=== PATIENT | female | born 1990 | race African-American/Black ===

== ENCOUNTER 2017-11-08 16:14 | Emergency (ER) | payer OTHER | END 2017-11-08 16:29 | disposition left against medical advice (07) | LOC: ERS 16:14 | DX: Z53.21 Procedure and treatment not carried out due to patient leaving prior to being seen by health care provider (principal) ==

== ENCOUNTER 2019-11-10 21:23 | Day surgery (SDC) | payer OTHER ==
[2019-11-10 21:54] VITALS: BMI 22.0
[2019-11-10 22:21] LABS: Amnisure Test No Membranes Rupture (No Rupture)
[2019-11-10 22:22] LABS: Amnisure Internal Control QC ACCEPTABLE (ACCEPTABLE)
[2019-11-10] MEDS ORDERED: hydrALAZINE 20 MG/ML VIAL SLOW IVP PRN (22:29)
--- NOTE | 2019-11-10 22:38 | PDOC.EVN ---
Event Note - Event Note Event Note: Amnisure neg NST reactive
--- NOTE | 2019-11-10 22:57 | HP ---
TIME OF EVALUATION: Roughly 2219. LOCATION: Labor and Delivery, bed 6. This is a patient of Dr. Salazar. CHIEF COMPLAINT: Possible contractions at 35 weeks and 2 days. HISTORY OF PRESENT ILLNESS: This is a 29-year-old, G6, P3, A2 with at 36 weeks with her last, here for possible contractions. She denies vaginal bleeding, or gush of fluid, or recent intercourse. She denies fever, or other complications. REVIEW OF SYSTEMS: Complete review of systems was checked and is otherwise negative unless specified in the HPI. PAST MEDICAL HISTORY: Negative. PAST SURGICAL HISTORY: Cone biopsy. ALLERGIES: NONE. SOCIAL HISTORY: Negative. PHYSICAL EXAMINATION: VITAL SIGNS: Show a blood pressure of 113/80, pulse of 81, respirations of 18, temperature is 98.7. GENERAL: Clinically, she is in no acute distress. HEENT: poor dentition noted ABDOMEN: Soft and nontender. PELVIC: Cervical exam reveals a cervix that is closed and there is no gross evidence of leakage or vaginal bleeding. On monitor, heart tones are reactive in the 140 with moderate variability and no decelerations. It is a reassuring strip. Contractions are irregular and there is uterine irritability on the monitor. ASSESSMENT: This is a G6, P3, at 35 weeks and 2 days with a cervix that is closed per RN exam and no gross evidence of rupture. We collected an AmniSure as she stated that she was "moist" in the vaginal area, but had no leakage or gush of fluid. Clinically, no evidence grossly of ROM. PLAN: 1. We will await the AmniSure results. 2. I do not have any gross evidence of rupture clinically. 3. If her AmniSure is negative, as her cervix is closed, we will have her follow up tomorrow in 24 hours in the office. Job ID: [id number] MTDD
--- NOTE | 2019-11-10 22:58 | PDOC.EVN ---
Event Note - Event Note Event Note: Predischarge note: Patient was upset that she was not in labor. We addressed her EGA with her and CX as closed. NST reasurring. She has requested for pain meds. I have ordered 2mg morphine IM (she is not driving). I have discussed Benja-Lauren with her at bedside.
[2019-11-10] MEDS ORDERED: Morphine 4 MG/ML VIAL IM SCH (23:00)
--- NOTE | 2019-11-11 00:07 | PDOC.EVN ---
Event Note - Event Note Event Note: Patient left the unit upset that we were not going to induce saying, "nothing was being done". We again reviewed with her IOL and EGA. She also verbally threatened one of our nurses (Byron) on her release from L&D. L&D precautions were given but she states she was "never coming back here".
[2019-11-11] MEDS ORDERED: FLU VACC QS2019-20(6MOS UP)/PF 60 MCG/0.5 ML SYRINGE IM ONE (21:00)
== END 2019-11-10 23:25 | disposition home or self-care (01) ==
LOC: L&D/OP 21:23
PROVIDERS: ATTEND Obstetrics & Gynecology
DX: O47.03 False labor before 37 completed weeks of gestation, third trimester (principal); O09.213 Supervision of pregnancy with history of pre-term labor, third trimester; Z3A.35 35 weeks gestation of pregnancy
CPT/HCPCS: 84112; J2270

== ENCOUNTER 2019-11-19 00:54 | Day surgery (SDC) | payer OTHER ==
[2019-11-19 02:12] VITALS: BP 107/59; TEMP 98.8; BMI 22.8
[2019-11-19] MEDS ORDERED: hydrALAZINE 20 MG/ML VIAL SLOW IVP PRN (07:10)
--- NOTE | 2019-11-19 08:00 | PRG ---
DATE OF SERVICE: 11/19/2019 PRIMARY OB: Kolton Salazar MD CHIEF COMPLAINT: Pelvic pain. HISTORY OF PRESENT ILLNESS: The patient is a 29-year-old G4, P3 female with an intrauterine at 36 weeks and 5 days, presenting to Labor and Delivery with a several-day history of lower pelvic pain. The patient reports that she has been seen recently for the similar pain and she reports pain in her lower pelvis. She reports that the baby should be able to be induced at this gestational age and is requesting induction. The patient denies any leakage of fluid or vaginal bleeding. She denies any recent illness, fever, fall, headache, chest pain, shortness of breath, nausea, vomiting, diarrhea, constipation, hip problems, knee problems, muscle weakness, vaginal bleeding, leakage of fluid, urinary urgency or frequency. PAST MEDICAL HISTORY: Negative. PAST SURGICAL HISTORY: Noncontributory. ALLERGIES: NO KNOWN DRUG ALLERGIES. MEDICATIONS: vitamins. OB LABS: Unavailable at time of dictation. REVIEW OF SYSTEMS: Per HPI. PHYSICAL EXAMINATION: VITAL SIGNS: Blood pressure 121/88, heart rate of 86, respiratory rate of 18, temperature 98.8. GENERAL: She appears to be in no acute distress. She is alert, oriented, cooperative, and pleasant to interact with. HEAD: Normocephalic, atraumatic. LUNGS: Clear to auscultation bilaterally. HEART: Has a regular rate and rhythm. ABDOMEN: Gravid. She does have some tenderness in her lower pelvis to palpation with deviation of the uterus, left than right. EXTREMITIES: Nontender, nonedematous. CERVICAL EXAM: Per nursing staff is 1, 50, and -3 station. heart tracing shows the fetus with a baseline in the 130s with moderate long-term variability. Positive 15 x 15 accelerations, no decelerations. Contraction are irregular. ASSESSMENT AND PLAN: The patient during her visit on multiple occasions showed some inpatients in the process and demanding induction and threatening to leave and go to a different hospital. Before the completion of the evaluation, the patient stated that she was no longer going to stay. She did thank me for our time and chose to leave without completing the evaluation. Fetus had a category 1 tracing. Cervix is unfavorable for labor and difficult to assess labor given the little time she was present. The patient was counseled to follow up with her primary OB as scheduled and has been given labor precautions. Job ID: [id number]
== END 2019-11-19 02:12 | disposition home or self-care (01) ==
LOC: L&D/OP 00:54
PROVIDERS: ATTEND Obstetrics & Gynecology
DX: O99.89 Other specified diseases and conditions complicating pregnancy, childbirth and the puerperium (principal); R10.2 Pelvic and perineal pain; Z3A.36 36 weeks gestation of pregnancy
CPT/HCPCS: 99282

== ENCOUNTER 2019-12-08 18:39 | Day surgery (SDC) | payer OTHER ==
[2019-12-08 19:36] VITALS: BP 136/95; TEMP 98.6; BMI 25.0
[2019-12-08] MEDS ORDERED: hydrALAZINE 20 MG/ML VIAL SLOW IVP PRN (20:00)
[2019-12-08 20:24] LABS: Amnisure Internal Control QC ACCEPTABLE (ACCEPTABLE)
[2019-12-08 20:28] LABS: Amnisure Test No Membranes Rupture (No Rupture)
--- NOTE | 2019-12-08 22:43 | ULT ---
OB ULTRASOUND: History: Term IUP, limited care. Evaluate presentation. FINDINGS: There is a single intrauterine gestation in cephalic presentation. Cardiac doppler demonstrates heart tones with a heart rate of 136 beats/minute. Placenta is located to the maternal right. The placenta in relation to the cervical os is not well demonstrated on this exam. There is shadowing from the head, limiting evaluation of the lower uterine segment and cervix. Amniotic fluid ind ex measures 12.2 cm which is within normal limits. Cardiac doppler does demonstrate heart tones with a heart of 136 beats/minute. measurements: BPD: 9.04 cm 36 weeks 4 days HC: 33.19 cm 37 weeks 6 days AC: 33.32 cm 37 weeks 2 days FL: 7.24 cm 37 weeks The estimated gestational age by ultrasound is 37 weeks 1 day with an QUINCY of 12-28-2019. Gestational a ge by the last menstrual period is 39 weeks 3 days. The estimated weight by ultrasound is 3141 grams (6 lbs. 15 oz.) This represents 20th percentil e for weight. anatomical structures are not evaluated on this examination. However, limited visualized portio ns of the spine, urinary bladder, stomach, and three vessel cord are seen and demonstrate a nor mal sonographic appearance. There is suggestion of a four-chambered heart. The kidneys and urinary bl adder demonstrate a normal sonographic appearance. The cord insertion is not well delineated, probabl y related to positioning and gestational age limiting adequate evaluation. One of the provided images questions the possibility of mildly prominent loose bowel within the abdomen. biophysical profile was performed with a score of 2 obtained each for tone, breathi ng, movement, and amniotic fluid volume. IMPRESSION: 1. Single intrauterine gestation with heart tones documented. Gestational age by ultrasound is 37 weeks 1 day with QUINCY of 12-28-2019. 2. Estimated weight is 3141 grams (6 lbs. 15 oz.) 3. One provided demonstrates what appear to be mildly prominent\dilated loops of small bowel. 4. A total biophysical profile score of 8/8 was obtained. POS: JACK
--- NOTE | 2019-12-09 08:43 | SS ---
DATE OF Evaluation: 12/08/2019 CHIEF COMPLAINT: Cramping, possible loss of fluid. HISTORY OF PRESENT ILLNESS: Ms. Aaron is a 29-year-old black G4, P3-0-0-3 with a reported estimated date of confinement of 12/12/2019, who presents complaining of intermittent cramping and the possible leakage of fluid since earlier today. Her early care had apparently been limited with Dr. Salazar. She states that she was incarcerated due to unpaid tickets and when she got out of the penitentiary, she could no longer be seen there. Since that time, she has had limited care. PAST OBSTETRICAL HISTORY: Includes three spontaneous vaginal deliveries at term. PAST MEDICAL HISTORY: None. PAST SURGICAL HISTORY: Includes either a cold knife conization or LEEP of the cervix. CURRENT MEDICATIONS: vitamins. ALLERGIES: INCLUDE SOME REACTION TO THE ANESTHESIA GIVEN DURING HER CONE BIOPSY. SOCIAL HISTORY: Denies tobacco, alcohol, or drug use. FAMILY HISTORY: Unremarkable. REVIEW OF SYSTEMS: Denies nausea, vomiting, fever, chills, or decreased movement. PHYSICAL EXAMINATION: VITAL SIGNS: Vital signs are stable. She is afebrile. GENERAL: She is initially pleasant, but then became annoyed at the end of her visit. ABDOMEN: Soft, nontender, and gravid. PELVIC: Exam by the labor nurse shows the cervix to be high and thick. There is copious vaginal discharge. heart rate tracing is reassuring with the exception of a single mild variable. Spontaneous accelerations are seen. Biophysical profile shows 8/8 with adequate amniotic fluid. Ultrasound shows a fetus in excess of 6 pounds in the vertex presentation. AmniSure testing returns negative. VPIII panel is positive for Gardnerella and Katharine. ASSESSMENT: 1. Suspected term . No evidence of active labor at this time. 2. Vaginitis. Both Gardnerella and Katharine seen on VPIII testing tonight. PLAN: I have attempted to connect this patient with the clinic through the residence. The night call team came up and spoke with her, but the patient became very frustrated and stated that she has already tried the clinic and they would not see her. I encouraged her to try again, but she seems angry and reluctant to do this. She was given a prescription for Flagyl 250 mg one p.o. t.i.d. for 7 days as well as Diflucan 1 p.o. x1. She voiced understanding of her discharge instructions. A group B strep culture is pending as of her discharge. Job ID: [id number] MTDD
== END 2019-12-08 22:00 | disposition home or self-care (01) ==
LOC: L&D/OP 18:39
PROVIDERS: ATTEND Obstetrics & Gynecology
DX: O23.593 Infection of other part of genital tract in pregnancy, third trimester (principal); B96.89 Other specified bacterial agents as the cause of diseases classified elsewhere; O98.813 Other maternal infectious and parasitic diseases complicating pregnancy, third trimester; B37.9 Candidiasis, unspecified; B95.1 Streptococcus, group B, as the cause of diseases classified elsewhere; O09.33 Supervision of pregnancy with insufficient antenatal care, third trimester; Z3A.37 37 weeks gestation of pregnancy; Z88.4 Allergy status to anesthetic agent
CPT/HCPCS: 76805; 76819; 84112; 87081; 87480; 87510; 87660; 99285

== ENCOUNTER 2019-12-13 14:52 | Inpatient (IN) | payer OTHER ==
[~2019-12-13 14:52] MED LIST: Bupivacaine/Epinephrine 0.25% 30 ML VIAL ONE
[2019-12-13 15:43] VITALS: BMI 26.4
[2019-12-13 16:36] LABS: Amnisure Test No Membranes Rupture (No Rupture)
[2019-12-13 16:37] LABS: Amnisure Internal Control QC ACCEPTABLE (ACCEPTABLE)
[2019-12-13] MEDS ORDERED: hydrALAZINE 20 MG/ML VIAL SLOW IVP PRN ×3 (16:43→22:51)
--- NOTE | 2019-12-13 16:47 | PDOC.FPROB ---
FMR OB H&P: HPI - History of Present Illness Chief Complaint: contractions, LOF, decreased movement History of Present Illness: 29 yo @40wks by LMP and 16.5wk sono her complaining of contractions since 0400 today, LOF since ~0600, and decreased movement all day. Last ate this morning for breakfast. Endorses vaginal discharge, white and thick, but states she is already being treated for BV and a yeast infection. FMR OB H&P: Current - Care : 4 Para: 3 - OB Labs Blood type: A RH: positive Antibody Screen: positive (titer 1:1) HIV: negative RPR: negative HepBsAg: negative Rubella: immune Quad screen: negative Urine drug screen: positive (1T for marijuana) Gonorrhea: negative Chlamydia: negative Pap Smear: NILM 1 hour gtt: not done FMR OB H&P: History - Past Medical History PMH: denies - OB History OB History: 3 prior SVDs - ABORIGINAL CEREMONIAL CELEBRANT History ABORIGINAL CEREMONIAL CELEBRANT History: Pap NILM - Surgical History Sx History: none - Social History Social History: denies smoking, alcohol, drug use hx of marijuana positive in 1T - Family History Family History: denies FMR OB H&P: Medications - Current Home Medications: Medication Instructions Recorded Confirmed Type Vit No.130/Iron/Folic 1 each PO DAILY 01/20/16 12/13/19 History [ Tablet] Fluconazole 1 tab PO DAILY 12/13/19 12/13/19 History Metronidazole [metroNIDAZOLE] 1 tab PO DAILY 12/13/19 12/13/19 History Allergies/Adverse Reactions: Allergies Allergy/AdvReac Type Severity Reaction Status Date / Time No Known Allergies Allergy Verified 12/08/19 19:37 FMR OB H&P: ROS - Review of Systems General: denies: fever/chills, weight/appetite/sleep changes ENT: denies: nasal congestion, rhinorrhea Cardiovascular: reports: edema. denies: chest pain, palpitation Gastrointestinal: reports: abdominal pain. denies: nausea, vomiting, diarrhea Genitourinary (Female): reports: vaginal discharge, contractions, other (LOF, decreased movment). denies: incontinence, dysuria Neurologic: denies: numbness, syncope Endocrine: denies: polydipsia, polyuria Psychological: denies: depression, anxiety FMR OB H&P: Physical Exam - Physical Exam General: NAD, awake, alert and oriented HEENT: normocephalic and atraumatic, EOMI, MMM, conjunctiva clear, no scleral icterus Neck: supple, trachea midline, no LAD Heart: RRR, normal S1/S2, no murmurs/rubs/gallops General: CTAB, no respiratory distress Abdomen: soft, gravid Musculoskeletal: normal gait and station Skin: no rash, good tugor, capillary refill <2 seconds Lymphatic: no unusual bruising or bleeding, no purpura, no petechia Psychiatric: intact recent and remote memory FMR OB H&P: Results - Labs Lab results: Laboratory Results - last 24 hr 12/13/19 16:12 Amnio Swab Test No Membranes Rupture FMR OB H&P: A/P - Problem List (1) Term Current Visit: Yes Status: Acute Code(s): Z34.90 - ENCNTR FOR SUPRVSN OF NORMAL , UNSP, UNSP TRIMESTER (2) Bacterial vaginosis Current Visit: Yes Status: Acute Code(s): N76.0 - ACUTE VAGINITIS; B96.89 - OTH BACTERIAL AGENTS THE CAUSE OF DISEASES CLASSD ELSWHR (3) Candidiasis of vagina Current Visit: Yes Status: Acute Code(s): B37.3 - CANDIDIASIS OF VULVA AND VAGINA (4) History of marijuana use Current Visit: Yes Status: Acute Code(s): Z87.898 - PERSONAL HISTORY OF OTHER SPECIFIED CONDITIONS (5) Positive GBS test Current Visit: Yes Status: Acute Code(s): B95.1 - STREPTOCOCCUS, GROUP B, CAUSING DISEASES CLASSD ELSWHR (6) History of incarceration Current Visit: Yes Status: Acute Code(s): Z78.9 - OTHER SPECIFIED HEALTH STATUS (7) Poor patient attendance of care Current Visit: Yes Status: Acute Code(s): O09.30 - SUPRVSN OF PREG W INSUFFICIENT ANTENAT CARE, UNSP TRIMESTER (8) Fluid loss Current Visit: Yes Status: Acute Code(s): E86.9 - VOLUME DEPLETION, UNSPECIFIED (9) Decreased movement Current Visit: Yes Status: Acute Code(s): O36.8190 - DECREASED MOVEMENTS, UNSP TRIMESTER, UNSP Discussion: Date/Time: 12/13/19 1646 29 yo @40wks here with contractions, LOF,decreased movement. #sIUP, term-rule out labor -kalia q5m -/-2 -recheck cervix in two hours if making change, admit for labor #decresed movement- -NST reactive -BPP ordered #LOF -amnisure, sterile speculum exam (declined until she gets pain medicine), however, bulging bag felt on vaginal exam #Vaginal Discharge- -Treated for Katharine and BV -will check gonorrhea and chlamydia #poor care #hx of UDs + for marijuana #BV-on flagyl #Katharine, vaginal-treated #GBS + #prior SVDs #hx of incarceration Evelia Chaparro MD, PGY-3
[2019-12-13] MEDS ORDERED: Butorphanol Tartrate 1 MG/ML VIAL SLOW IVP PRN (17:09)
[2019-12-13] MEDS ORDERED: Ibuprofen 800 MG TAB PO PRN (17:09)
[2019-12-13] MEDS ORDERED: Promethazine HCl 25 MG/ML VIAL IM PRN ×2 (17:09→19:17)
[2019-12-13] MEDS ORDERED: Ondansetron PF 4 MG/2 ML Vial IVP PRN ×2 (17:09→19:17)
[2019-12-13] MEDS ORDERED: Acetaminophen 500 MG TAB PO PRN (17:09)
[2019-12-13] MEDS ORDERED: Lidocaine 1% (PF) 30 ML VIAL SC PRN (17:09)
[2019-12-13] MEDS: Lactated Ringer's 1,000 ML IV SCH ×2 (17:30→18:05)
[2019-12-13 17:43] LABS: Hemoglobin 11.6 g/dL (12.0-16.0); Mean Corpuscular HGB CONC 32.1 g/dL (32.0-36.0); Mean Corpuscular Hemoglobin 27.3 pg (27.0-31.0); Mean Platelet Volume 10.4 fL (7.4-10.4); Platelet Count 206 thou/uL (130-400); RBC Distribution Width 14.4 % (11.5-14.5); Red Blood Cell (RBC) Count 4.25 mill/uL (4.20-5.40); White Blood Cell (WBC) Count 9.2 thou/uL (4.8-10.8)
[2019-12-13] MEDS ORDERED: Penicillin G Potassium 5 MILL.UNITS in Sodium Chloride 0.9% 100 ML IVPB SCH (18:00)
[2019-12-13 18:16] LABS: Syphilis Antibody Nonreactive (Nonreactive); Syphilis Antibody Index 0.04 S/CO (<1.00 Non-Reactive)
--- NOTE | 2019-12-13 18:22 | ULT ---
LIMITED OBSTETRICAL ULTRASOUND FOR BIOPHYSICAL PROFILE INDICATION: Evaluate BPP; term with variables on external monitor TECHNIQUE: Grayscale, M-mode Doppler, color Doppler and spectral Doppler images were obtained. Biophy sical profile was submitted by the engine test cell technician. Imaging is focused on the clinical indication. COMPARISON: No relevant prior studies available. GESTATION: Number of gestations: Single. Presentation: Cephalic. heart rate: 137 bpm. Placental location: Anterior Previa: No evidence for previa. Cervical length: Not measured MILDRED: 12.7 cm. Biophysical profile: tone: 2 out of 2. breathin out of 2 movements: 2 out of 2 Amniotic fluid level: 2 out of 2 IMPRESSION: 1. Biophysical profile of 8 out of 8.
[2019-12-13 18:29] LABS: HBSAg Index 0.17 S/CO (0-0.99); HIV (1/2) Antibody/Antigen Non-Reactive (NonReactive); HIV 1/2 INDEX 0.07 S/CO (<1.00); Hep B Surf Ag Non-Reactive S/CO (NonReactive); Hep C IgG Ab Non-Reactive (NonReactive); Hep C Index 0.09 S/CO (0-0.79)
[2019-12-13 18:50] LABS: Amphetamine Not Detected (NotDetected); Barbiturates Screen Not Detected (NotDetected); Benzodiazepine Screen Not Detected (NotDetected); Cocaine Metabolite Screen Not Detected (NotDetected); Medtox Control Line Valid? VALID (VALID); Medtox Reader # READER 1; Methadone Not Detected (NotDetected); Methamphetamine Not Detected (NotDetected); Opiate Screen Not Detected (NotDetected); Oxycodone Screen Not Detected (NotDetected); Phencyclidine (PCP) Not Detected (NotDetected); THC/Cannabinoid Screen Detected (NotDetected); Tricyclic Screen Not Detected (NotDetected)
[2019-12-13] MEDS ORDERED: Acetaminophen 325 MG TAB PO PRN (19:17)
[2019-12-13] MEDS ORDERED: Naloxone HCl 0.4 mg/ml Vial IVP PRN ×2 (19:17)
[2019-12-13] MEDS ORDERED: diphenhydrAMINE 50 MG/ML VIAL IVP PRN (19:17)
[2019-12-13] MEDS ORDERED: ePHEDrine/0.9% NaCl/PF SYRINGE 50 mg/10 ml SLOW IVP PRN (19:17)
[2019-12-13] MEDS ORDERED: Lactated Ringer's 500 ML IV PRN (19:17)
[2019-12-13] MEDS ORDERED: Communication Order-Pharmacy FS SCH (19:30)
[2019-12-13] MEDS ORDERED: Fentanyl 4 mcg/Bupivacaine 0.1% Cassette 100 ML EPIDURAL SCH (19:30)
[2019-12-13] MEDS ORDERED: Terbutaline Sulfate 1 MG/ML VIAL ONE (19:57)
[2019-12-13] MEDS: NS / Oxytocin 40 units/1000ml 1,000 ML IV PRN ×2 (20:18→21:56)
--- NOTE | 2019-12-13 20:48 | PDOC.OPDEL ---
OB Operative/Delivery Note Delivery Dr/Surgeon: Patti Gunn Assist: Dr. Shavonne Holt Pre-Delivery Diagnosis: active labor Procedure/Post Delivery Dx: operative vaginal delivery Weeks gestation: 40 Anesthesia: epidural - Findings A Sex: female - 1 min: 4 - 5 min: 8 - Additional Findings/Plan Placenta delivered: spontaneous Repaired Obstetrical Laceration: none Estimated blood loss: 100 ml QBL Compilations/Other Findings: Delivering Physician Patti Gunn Attending Dr. Holt Procedure: Spontaneous Vaginal Delivery Anesthesia: epidural QBL: 100 ml Pre-op Diagnosis: 1. Term intrauterine in labor 2. GBS + 3. Maternal abuse of marijuana 4. Intermittent care Post-op Diagnosis: 1. Term intrauterine , delivered 2. GBS +: Penicillin hung at 1630, baby delivered at 2018: inadequate penicillin ppx. 3. same as above Indications: A 29 y/o female @ 40.0 wk by 16.5 wk sono presents in active labor who delivered a viable F infant at 20:18 on 12/13/2019. Due to non reassuring heart rate, the vacuum was placed anterior to the posterior fontanel at +2 station, ALEISHA position after bladder emptied and anesthesia found to be adequate. Infant was delivered within one pull without complication (0 pop-offs). The infant head/face was examined and no bruising noted. The vigorous female was delivered over an intact perineum in the Left occipitoanterior position. Anterior Shoulder and then remainder of the body delivered. No nuchal cord. The head was held down and mouth and nares were bulb suctioned. Cord clamped and cut and cord blood collected. Placenta delivered intact in the Mc presentation with a 3 vessel cord noted. Fundal massage was performed and the fundus was firm. The cervix and vagina were inspected and found to be free of lacerations. went to nursery in good condition for routine care. Apgars were _4_/_8_ at 1 & 5 minutes, respectively, and 10 at 10 minutes. Patient tolerated delivery well and went to after routine recovery/care. Post delivery plan: routine recovery
[2019-12-13] MEDS ORDERED: NS / Oxytocin 40 units/1000ml 1,000 ML IV SCH (22:51)
[2019-12-13] MEDS ORDERED: Bisacodyl 10 MG SUPP PR PRN (22:51)
[2019-12-13] MEDS ORDERED: Lanolin Ointment 7 GM TUBE TOP PRN (22:51)
[2019-12-13] MEDS ORDERED: Benzocaine-Menthol 82.5 ML CAN TOP PRN (22:51)
[2019-12-13] MEDS ORDERED: Preparation H Ointment 57 gram tube RC PRN (22:51)
[2019-12-13] MEDS ORDERED: Milk Of Magnesia 30 ML UDCUP PO PRN (22:51)
[2019-12-13] MEDS ORDERED: Ibuprofen 800 MG TAB PO SCH (23:00)
[2019-12-13] MEDS ORDERED: Docusate Calcium (SURFAK) 240 MG CAP PO SCH (23:00)
[2019-12-14] MEDS: Ibuprofen 800 MG TAB PO SCH ×3 (03:56→21:24)
[2019-12-14] MEDS: metroNIDAZOLE 500 MG TAB PO SCH ×3 (03:57→21:25)
--- NOTE | 2019-12-14 07:06 | PDOC.PP ---
Post Progress Note Post Day #: 1 Subjective: Pt feeling well, pain is well controlled, minimal lochia. She is eating/drinking , walking, passing flatus, voiding. PO intake tolerated: yes Flatus: yes Ambulation: yes Vital Signs (12 hours) Temp Pulse Resp BP Pulse Ox 12/14/19 03:50 98.0 F 78 18 108/63 12/14/19 01:05 98.1 F 72 18 131/62 12/13/19 23:25 98.6 F 84 18 129/83 99 Weight Weight 78.925 kg - Physical Examination General: NAD Cardiovascular: no m/r/g, RRR Respiratory: clear to auscultation bilaterally, non-labored breathing Abdominal: + bowel sounds, lochia, no distention, appropriately TTP Fundus firm & at: below umbilicus Psychiatric: A&Ox3, normal affect Result Diagrams: 12/14/19 05:55 Additional Labs: Post Labs Blood Type A POSITIVE 12/14/19 05:55 Hep Bs Antigen Non-Reactive S/CO (NonReactive) 12/13/19 17:24 (1) Bacterial vaginosis Code(s): N76.0 - ACUTE VAGINITIS; B96.89 - OTH BACTERIAL AGENTS THE CAUSE OF DISEASES CLASSD ELSWHR Status: Acute (2) Candidiasis of vagina Code(s): B37.3 - CANDIDIASIS OF VULVA AND VAGINA Status: Acute (3) History of incarceration Code(s): Z78.9 - OTHER SPECIFIED HEALTH STATUS Status: Acute (4) History of marijuana use Code(s): Z87.898 - PERSONAL HISTORY OF OTHER SPECIFIED CONDITIONS Status: Acute (5) Positive GBS test Code(s): B95.1 - STREPTOCOCCUS, GROUP B, CAUSING DISEASES CLASSD ELSWHR Status : Acute (6) Term Code(s): Z34.90 - ENCNTR FOR SUPRVSN OF NORMAL , UNSP, UNSP TRIMESTER Status: Acute (7) Normal spontaneous vaginal delivery Code(s): O80 - ENCOUNTER FOR FULL-TERM UNCOMPLICATED DELIVERY Status: Acute - Assessment/Plan 29 yo G4 now P4 s/p PPD #1 #PPD #1 -Delivered via vacuum-assisted on 12/13 @ 2018 -VSS -ambulating, normal lochia, flatus, eating/drinking, voiding/passing flatus -Pain well controlled -fundus firm and below umbilicus -QBL 100 ml -Pt refusing lab draws this AM, discussed with pt reasoning for lab draws -Plan to bottle feed -She is still deciding who will be baby's doctor #GBS+, inadequately treated -continue to monitor mom/baby for s/s sepsis for full 48 hrs #poor care #+UDS for marijuana #BV-on flagyl #Katharine, vaginal-treated #hx of incarceration Dispo: Likely discharge home in 2 days.
[2019-12-14 07:10] LABS: Band 4 % (5-11); Hemoglobin 9.4 g/dL (12.0-16.0); Lymphocytes 24 % (21-51); MDiff Complete? YES; Mean Corpuscular HGB CONC 32.8 g/dL (32.0-36.0); Mean Corpuscular Hemoglobin 28.2 pg (27.0-31.0); Mean Platelet Volume 10.9 fL (7.4-10.4); Monocytes 10 % (0-10); Neutrophil 62 % (42-75); Platelet Count 167 thou/uL (130-400); RBC Distribution Width 14.5 % (11.5-14.5); Red Blood Cell (RBC) Count 3.35 mill/uL (4.20-5.40); White Blood Cell (WBC) Count 12.8 thou/uL (4.8-10.8)
[2019-12-14] MEDS: Penicillin G 2.5 MILL.units 2.5 MILL.UNITS in Premix Bag 1 BAG IVPB SCH ×4 (07:32→17:38)
[2019-12-14] MEDS ORDERED: Adacel (T-DAP) 0.5 ML SYRINGE IM ONE (09:00)
[2019-12-14] MEDS ORDERED: Prenatal Vitamin 1 TAB PO SCH ×2 (09:00)
[2019-12-14] MEDS: Docusate Calcium (SURFAK) 240 MG CAP PO SCH ×2 (10:04→21:25)
[2019-12-14] MEDS: Ferrous Sulfate 325 MG TAB PO SCH ×2 (10:04→17:46)
[2019-12-14] MEDS: Lactated Ringer's 1,000 ML IV SCH ×2 (10:05→17:38)
[2019-12-14] MEDS ORDERED: FLU VACC QS2019-20(6MOS UP)/PF 60 MCG/0.5 ML SYRINGE IM ONE (16:15)
[2019-12-14 23:52] VITALS: BP 108/68; TEMP 98.4
[2019-12-15] MEDS: Penicillin G 2.5 MILL.units 2.5 MILL.UNITS in Premix Bag 1 BAG IVPB SCH ×2 (05:52→05:54)
[2019-12-15] MEDS: Lactated Ringer's 1,000 ML IV SCH (05:55)
[2019-12-15] MEDS: Ibuprofen 800 MG TAB PO SCH (05:55)
--- NOTE | 2019-12-15 06:21 | PDOC.PP ---
Post Progress Note Post Day #: 2 Subjective: Pt pain is controlled, eating/drinking/voiding and stooling, ambulating well. Normal lochia. CPS came to see mother overnight due to +UDS for cannabis. Mother refused to sign a safety plan at that time. CPS stated they would come back to see her on Monday. Mother stated at first she was planning to leave after the 48 hrs was up, now states she is leaving now and demanding discharge paperwork. Discussed that she would be leaving against medical advice if she leaves now with the baby. PO intake tolerated: yes Flatus: yes Ambulation: yes Vital Signs (12 hours) Temp Pulse Resp BP Pulse Ox 12/14/19 20:20 98.4 F 86 18 108/68 99 Weight Weight 78.925 kg - Physical Examination General: NAD Cardiovascular: no m/r/g, RRR Respiratory: clear to auscultation bilaterally, non-labored breathing Abdominal: + bowel sounds, no distention, appropriately TTP Neurological: no gross focal deficits Psychiatric: A&Ox3 Deviation from normal: guarded affect Result Diagrams: 12/14/19 05:55 Additional Labs: Post Labs Blood Type A POSITIVE 12/14/19 05:55 Hep Bs Antigen Non-Reactive S/CO (NonReactive) 12/13/19 17:24 (1) Bacterial vaginosis Code(s): N76.0 - ACUTE VAGINITIS; B96.89 - OTH BACTERIAL AGENTS THE CAUSE OF DISEASES CLASSD ELSWHR Status: Acute (2) Candidiasis of vagina Code(s): B37.3 - CANDIDIASIS OF VULVA AND VAGINA Status: Acute (3) History of incarceration Code(s): Z78.9 - OTHER SPECIFIED HEALTH STATUS Status: Acute (4) History of marijuana use Code(s): Z87.898 - PERSONAL HISTORY OF OTHER SPECIFIED CONDITIONS Status: Acute (5) Positive GBS test Code(s): B95.1 - STREPTOCOCCUS, GROUP B, CAUSING DISEASES CLASSD ELSWHR Status : Acute (6) Term Code(s): Z34.90 - ENCNTR FOR SUPRVSN OF NORMAL , UNSP, UNSP TRIMESTER Status: Acute (7) Normal spontaneous vaginal delivery Code(s): O80 - ENCOUNTER FOR FULL-TERM UNCOMPLICATED DELIVERY Status: Acute - Assessment/Plan 29 yo G4 now P4004 s/p PPD #2 #PPD #2 -Delivered via vacuum-assisted on 12/13 @ 20:18 -VSS -ambulating, normal lochia, flatus, eating/drinking, voiding/passing flatus -Pain well controlled -fundus firm and below umbilicus -QBL 100 ml -Plan to bottle feed -She is still deciding who will be baby's doctor #GBS+, inadequately treated -continue to monitor mom/baby for s/s sepsis for full 48 hrs #Anemia -Hgb 11.6-> 9.4 -Asymptomatic, VSS -Continue Fe #poor care #+UDS for marijuana -CPS came last night, wants patient to be kept until Monday in order for safety plan to be filled out prior to discharge -If patient leaves with baby AMA, we do not have to physically restrain her, just call CPS to let them know #BV-on flagyl #Katharine, vaginal-treated #hx of incarceration Dispo: Plan to discharge to bed and breakfast after 8:30 tonight, and to discharge baby tomorrow after speaking with CPS, however mother is threatening to leave AMA at this time.
== END 2019-12-15 07:48 | disposition left against medical advice (07) | DRG 806 ==
LOC: L&D/OP 14:52 → L&D 17:20 → 3SW 23:57
PROVIDERS: ADMIT Family Medicine; ATTEND Family Medicine
PROC: 10D07Z6 Extraction of Products of Conception, Vacuum, Via Natural or Artificial Opening (ICD-10-PCS; principal; 2019-12-13)
DX: O36.8130 Decreased fetal movements, third trimester, not applicable or unspecified (principal); O98.82 Other maternal infectious and parasitic diseases complicating childbirth; Z37.0 Single live birth; O99.323 Drug use complicating pregnancy, third trimester; O23.593 Infection of other part of genital tract in pregnancy, third trimester; O99.824 Streptococcus B carrier state complicating childbirth; Z3A.40 40 weeks gestation of pregnancy; B37.9 Candidiasis, unspecified; O99.02 Anemia complicating childbirth; D64.9 Anemia, unspecified; F12.10 Cannabis abuse, uncomplicated; Z79.899 Other long term (current) drug therapy
CPT/HCPCS: 36415; 76819; 80306; 84112; 85025; 85027; 86780; 86803; 86850; 86900; 86901; 87340; 87389; 99285; J2540; J3105; J3490

== ENCOUNTER 2022-05-03 17:12 | Emergency (ER) | payer OTHER ==
[2022-05-03] MEDS ORDERED: Ibuprofen 800 MG TAB ONE (19:06)
[2022-05-03] MEDS ORDERED: Acetaminophen 500 MG TAB ONE (21:02)
[2022-05-03 21:04] LABS: Bacteria/HPF 3+ HPF (None Seen); Bilirubin Negative (Negative); Blood, Urine 2+ (Negative); Clarity Turbid (Clear); Glucose, Urine (Dipstick) Normal (Negative); Ketone, Urine 10 mg/dL (Negative); Leukocyte 500 Leu/uL (Negative); Nitrite 2+ (Negative); Protein, Urine (Dipstick) 50 mg/dL (Neg-Trace); Specific Gravity, Urine 1.012 (1.002-1.036); Transitional Epithelial 0-3 HPF (None Seen); Urobilinogen Normal mg/dL (Less than 2); WBC/HPF Greater than 50 HPF (0-3)
[2022-05-03 21:44] LABS: #Basophils 0.1 thou/uL (0.0-0.2); #Lymphocytes 1.3 thou/uL (1.20-3.40); #Monocytes 0.4 thou/uL (0.11-0.59); #Neutrophils 3.1 thou/uL (1.40-6.50); %Basophils 1.6 % (0.0-1.0); %Eosinophils 0.1 % (0.0-10.0); %Monocytes 7.6 % (0.0-10.0); %Neutrophils 63.8 % (42.0-75.0); ALT (SGPT) 10 U/L (8-55); AST (SGOT) 25 U/L (5-34); Albumin 3.8 g/dL (3.5-5.0); Alkaline Phosphatase 56 U/L (40-110); Anion Gap 14 mmol/L (10-20); Anisocytosis SLIGHT = 6-15 cells (100X) (0-5/hpf); BUN (Urea Nitrogen) 6 mg/dL (7.0-18.7); Bilirubin, Total 0.3 mg/dL (0.2-1.2); Calc. Creatinine Clearance 0 mL/min (70-130); Calcium 8.8 mg/dL (7.8-10.44); Carbon Dioxide 19 mmol/L (22-29); Chloride 103 mmol/L (98-107); Globulin 3.5 g/dL (2.4-3.5); Glucose 85 mg/dL (70-105); Hemoglobin 9.3 g/dL (12.0-16.0); MDiff Complete? YES; Mean Corpuscular HGB CONC 30.2 g/dL (32.0-36.0); Mean Corpuscular Hemoglobin 21.9 pg (27.0-31.0); Mean Corpuscular Volume 72.6 fL (78.0-98.0); Mean Platelet Volume 9.4 fL (7.4-10.4); Microcytosis SLIGHT = 6-15 cells (100X) (0-5/hpf); Platelet Count 303 thou/uL (130-400); Potassium 3.5 mmol/L (3.5-5.1); Protein, Total 7.3 g/dL (6.0-8.3); RBC Distribution Width 17.8 % (11.5-14.5); Red Blood Cell (RBC) Count 4.24 mill/uL (4.20-5.40); Sodium 132 mmol/L (136-145); White Blood Cell (WBC) Count 4.8 thou/uL (4.8-10.8)
[2022-05-03 22:44] LABS: Pregnancy Test - Urine (BHCG) Negative (Negative); Pregu Control Background? CLEAR/WHITE (CLR/WHITE); Pregu Control Bar Appear? YES (CONTROL BAR); Specific Gravity 1.012 (1.002-1.036)
== END 2022-05-03 22:17 | disposition home or self-care (01) ==
LOC: ERS 17:12
DX: U07.1 COVID-19 (principal); N39.0 Urinary tract infection, site not specified; D64.9 Anemia, unspecified
CPT/HCPCS: 36415; 80053; 81003; 81015; 81025; 85025; 87077; 87086; 87186; 87804; 99284; U0003; U0005

== ENCOUNTER 2022-08-08 08:58 | Emergency (ER) | payer OTHER ==
[2022-08-08] MEDS ORDERED: Boostrix 0.5 ML (Tdap) VIAL (>/=7 yrs of age) ONE (09:10)
[2022-08-08] MEDS ORDERED: Lidocaine 2% PF 5 ML VIAL ONE (09:11)
[2022-08-08 09:35] LABS: BHCG - Serum POSITIVE (NEGATIVE); Pregs Control Background? CLEAR/WHITE (CLR/WHITE); Pregs Control Bar Appear? YES (CONTROL BAR)
== END 2022-08-08 11:15 | disposition home or self-care (01) ==
LOC: ERS 08:58
DX: O9A.23 Injury, poisoning and certain other consequences of external causes complicating the puerperium (principal); S61.210A Laceration without foreign body of right index finger without damage to nail, initial encounter; Z3A.01 Less than 8 weeks gestation of pregnancy; X99.1XXA Assault by knife, initial encounter
CPT/HCPCS: 36415; 76856; 84702; 84703; 86900; 86901; 90471; 90715; J2001

== ENCOUNTER 2022-11-16 17:28 | Emergency (ER) | payer OTHER ==
[2022-11-16] MEDS ORDERED: Ondansetron ODT 4 MG TAB ONE (19:22)
== END 2022-11-16 21:15 | disposition left against medical advice (07) ==
LOC: ERS 17:28
DX: Z53.21 Procedure and treatment not carried out due to patient leaving prior to being seen by health care provider (principal)
CPT/HCPCS: Q0162

== ENCOUNTER 2022-12-07 09:30 | Outpatient (CLI) | payer OTHER | END 2022-12-07 09:31 | disposition home or self-care (01) | LOC: BICULT 09:30 | PROVIDERS: ATTEND Advanced Practice Midwife | DX: Z34.92 Encounter for supervision of normal pregnancy, unspecified, second trimester (principal); Z3A.23 23 weeks gestation of pregnancy | CPT/HCPCS: 76805 ==

== ENCOUNTER 2023-02-28 12:19 | Emergency (ER) | payer OTHER | END 2023-02-28 14:13 | disposition home or self-care (01) | LOC: ERS 12:19 | DX: J06.9 Acute upper respiratory infection, unspecified (principal) | CPT/HCPCS: 87081; 87430; 99283 ==